=== PATIENT | female | born 1930 | race Caucasian/White ===

== ENCOUNTER 2016-09-21 12:01 | Outpatient (CLI) | payer MEDICARE, OTHER | END 2016-09-21 12:02 | disposition home or self-care (01) | DX: E11.9 Type 2 diabetes mellitus without complications (principal); I10 Essential (primary) hypertension; E78.5 Hyperlipidemia, unspecified ==

== ENCOUNTER 2017-02-20 13:05 | Outpatient (CLI) | payer MEDICARE, OTHER | END 2017-02-20 13:06 | disposition critical access hospital (66) | LOC: EMS 13:05 | PROVIDERS: ATTEND Surgery | DX: R40.20 Unspecified coma (principal) | CPT/HCPCS: A0425; A0427 ==

== ENCOUNTER 2017-02-20 13:25 | Emergency (ER) | payer MEDICARE, OTHER ==
[2017-02-20] MEDS ORDERED: SODIUM CHLORIDE 0.9% 1,000 ML IV ONE (13:54)
[2017-02-20] MEDS ORDERED: DEXTROSE 25% ABBOJECT 2.5 GM/10 ML SYRINGE IVP STA (14:45)
[2017-02-20] MEDS ORDERED: DEXTROSE 5% 1,000 ML IV ONE (15:30)
--- NOTE | 2017-02-20 16:45 | ED Physician Documentation ---
History of Present Illness - Stated complaint Stated Complaint: HYPOGLYCEMIC - Chief complaint Chief Complaint: General - History obtained from History obtained from: Patient, Family - History of Present Illness Timing: Today - Additonal information Additional information: 86 y/o female was feeling well yesterday and today she ended up unconscious on the floor. Her blood sugar was 33 and she was given an amp of D50 and the sugar went up to over 200 and back to under 70 when she arrived here. She has been able to eat now and a second line is begun and she is given D5 at 200ml/hr. She is on insulin and metformin. The patient indicates that yesterday she was feeling well and other than some mild fatigue today was feeling well. She was able to take her morning insulin and metformin and denies any chance of a double dose of insulin and she was found on the floor of her bathroom. Review of Systems Constitutional: reports: Sweats. denies: Fever, Myalgias Eyes: denies: Decreased vision Ears: denies: Ear pain Nose: denies: Congestion Throat: denies: Sore throat Cardiac: denies: Chest pain / pressure, Palpitations Respiratory: denies: Dyspnea, Cough GI: denies: Abdominal Pain, Nausea, Vomiting : denies: Dysuria, Frequency, Hesitancy Skin: denies: Rash Musculoskeletal: denies: Neck pain, Back pain, Extremity pain Neurologic: denies: Generalized weakness, Focal weakness, Numbness PD PAST MEDICAL HISTORY - Past Medical History Cardiovascular: Hypertension Respiratory: None Neuro: CVA, TIA Endocrine/Autoimmune: Type 2 diabetes GI: Diverticulitis 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 : None HEENT: Glaucoma Psych: None Musculoskeletal: Osteoarthritis, Osteoporosis Derm: None - Past Surgical History Past Surgical History: Yes General: Cholecystectomy /GIANT TIRE REPAIRER: Hysterectomy - Present Medications Home Medications: Ambulatory Orders Medication Instructions Recorded Confirmed Alendronate Sodium [Fosamax] 70 mg PO DAILY 07/30/13 02/08/17 Aspirin 325 mg PO DAILY 07/30/13 02/08/17 Ca/D3/Mag Ox/Zinc/Sandwich Counter Attendant/Nestor/Bor 1 each PO DAILY 07/30/13 02/08/17 [Calcium +D & Minerals Chew Tab] Clopidogrel [Plavix] 75 mg PO DAILY 07/30/13 02/08/17 Insulin Aspart (Vial) [NovoLOG] 6 unit SQ ONCEDAILY 07/30/13 02/08/17 Insulin Glargine,Hum.rec.anlog 24 unit SQ QAM 07/30/13 02/08/17 [Lantus] Lisinopril 20 mg PO DAILY 07/30/13 02/08/17 Metformin HCl [Fortamet] 1,000 mg PO BID 07/30/13 02/08/17 Multivitamin [Multi-Day Vitamins] 1 each PO DAILY 07/30/13 02/08/17 Simvastatin 20 mg PO DAILY 07/30/13 02/08/17 Carvedilol 12.5 mg PO BID 08/09/13 02/08/17 - Allergies Allergies/Adverse Reactions: Allergies Allergy/AdvReac Type Severity Reaction Status Date / Time No Known Drug Allergies Allergy Verified 07/24/16 22:55 - Social History Does the pt smoke?: No Smoking Status: Never smoker Does the pt drink ETOH?: No Does the pt have substance abuse?: No - Immunizations Immunizations are current?: Yes - POLST Patient has POLST: No PD ED PE NORMAL - Vitals Vital signs reviewed: Yes (hypertensive ) - General General: No acute distress, Well developed/nourished - HEENT HEENT: Atraumatic, PERRL - Neck Neck: Supple, no meningeal sign - Cardiac Cardiac: RRR - Respiratory Respiratory: No respiratory distress, Clear bilaterally - Abdomen Abdomen: Soft, Non tender - Back Back: No CVA TTP, No spinal TTP - Derm Derm: Normal color, Warm and dry, No rash - Extremities Extremities: No deformity, No edema - Neuro Neuro: Alert and oriented X 3, No motor deficit, No sensory deficit, Normal speech - Psych Psych: Normal mood, Normal affect Results - Vitals Vitals: Vital Signs - 24 hr 02/20/17 02/20/17 02/20/17 13:27 16:59 18:27 Temperature 35 C L 36.5 C Heart Rate 65 68 76 Respiratory 16 14 12 Rate Blood Pressure 156/128 H 130/63 121/62 O2 Saturation 100 96 92 Oxygen O2 Source Room air - Labs Labs: Laboratory Tests 02/20/17 02/20/17 02/20/17 16:43 16:43 16:43 WBC 11.4 H RBC 3.36 L Hgb 10.6 L Hct 32.6 L MCV 97.2 MCH 31.6 H MCHC 32.5 RDW 15.3 H Plt Count 246 MPV 8.5 Neut # 9.6 H Lymph # 1.3 L [place] # 0.4 Eos # 0.0 Baso # 0.0 Absolute Nucleated RBC 0.00 Nucleated RBCs 0.0 Sodium 137 Potassium 4.0 Chloride 101 Carbon Dioxide 26 Anion Gap 10.0 BUN 32 H Creatinine 1.0 Estimated GFR (MDRD) 52 L Glucose 220 H Calcium 9.4 Total Bilirubin 0.5 AST 29 ALT 22 Alkaline Phosphatase 50 Troponin I < 0.04 Total Protein 6.8 Albumin 3.7 Globulin 3.1 Albumin/Globulin Ratio 1.2 Lipase 21 L Urine Color Urine Clarity Urine pH Ur Specific [place] Urine Protein Urine Glucose (UA) Urine Ketones Urine Occult Blood Urine Nitrite Urine Bilirubin Urine Urobilinogen Ur Leukocyte Esterase Urine RBC Urine WBC Ur Squamous Epith Cells Urine Bacteria Ur Microscopic Review Urine Culture Comments 02/20/17 17:55 WBC RBC Hgb Hct MCV MCH MCHC RDW Plt Count MPV Neut # Lymph # [place] # Eos # Baso # Absolute Nucleated RBC Nucleated RBCs Sodium Potassium Chloride Carbon Dioxide Anion Gap BUN Creatinine Estimated GFR (MDRD) Glucose Calcium Total Bilirubin AST ALT Alkaline Phosphatase Troponin I Total Protein Albumin Globulin Albumin/Globulin Ratio Lipase Urine Color YELLOW Urine Clarity CLEAR Urine pH 6.0 Ur Specific [place] 1.020 Urine Protein NEGATIVE Urine Glucose (UA) 100 H Urine Ketones NEGATIVE Urine Occult Blood SMALL H Urine Nitrite NEGATIVE Urine Bilirubin NEGATIVE Urine Urobilinogen 0.2 (NORMAL) Ur Leukocyte Esterase NEGATIVE Urine RBC 6-10 H Urine WBC 0-3 Ur Squamous Epith Cells NONE SEEN Urine Bacteria None Seen Ur Microscopic Review INDICATED Urine Culture Comments NOT INDICATED PD MEDICAL DECISION MAKING - ED course Complexity details: reviewed old records, reviewed results, re-evaluated patient , considered differential, d/w patient ED course: 86-year-old female insulin-dependent diabetic with reactive hypoglycemia has been rescued with intravenous glucose 2 she is now feeling improved she is hydrated and will be stable for disposition. Departure - Departure Disposition: 01 Home, Self Care Clinical Impression: Hypoglycemia due to insulin Instructions: ED Diabetes Hypoglycemia Insulin React Follow-Up: Mir Andrade MD [Primary Care Provider] -
[2017-02-20 16:49] LABS: BASOPHILS % (AUTO) 0.4 %; EOSINOPHILS % (AUTO) 0.2 %; HCT - HEMATOCRIT 32.6 % (37.0-47.0); HGB - HEMOGLOBIN 10.6 g/dL (12.0-16.0); LYMPHOCYTES # (AUTO) 1.3 10^3/uL (1.5-3.5); LYMPHOCYTES % (AUTO) 11.2 %; MEAN CORPUSCULAR HEMOGLOBIN 31.6 pg (27.0-31.0); MEAN CORPUSCULAR HGB CONC 32.5 g/dL (32.0-36.0); MEAN CORPUSCULAR VOLUME 97.2 fL (81.0-99.0); MEAN PLATELET VOLUME 8.5 fL (7.9-10.8); MONOCYTES # (AUTO) 0.4 10^3/uL (0.0-1.0); MONOCYTES % (AUTO) 3.9 %; NEUTROPHILS # (AUTO) 9.6 10^3/uL (1.5-6.6); NEUTROPHILS % (AUTO) 84.3 %; RED BLOOD COUNT 3.36 10^6/uL (4.20-5.40); RED CELL DISTRIBUTION WIDTH 15.3 % (12.0-15.0); UNCORRECTED WHITE BLOOD COUNT 11.4 x10^3/uL; WHITE BLOOD COUNT 11.4 x10^3/uL (4.8-10.8)
[2017-02-20 17:04] LABS: ALBUMIN/GLOBULIN RATIO 1.2 (1.0-2.2); BILIRUBIN,TOTAL 0.5 mg/dL (0.2-1.0); CALCIUM 9.4 mg/dL (8.5-10.3); TOTAL PROTEIN 6.8 g/dL (6.7-8.2)
[2017-02-20 18:06] LABS: BILIRUBIN,URINE NEGATIVE (NEGATIVE)
[2017-02-20 18:08] LABS: UA w/ MICROSCOPIC CHARGE YES
[2017-02-20 18:33] LABS: UR CULTURE IF IND NOT INDICATED; WBC,URINE 0-3 /HPF (0-5)
[2017-02-20 19:12] VITALS: BP 144/64
== END 2017-02-20 19:36 | disposition home or self-care (01) ==
LOC: EDUNIT# → ED 13:25
DX: E11.649 Type 2 diabetes mellitus with hypoglycemia without coma (principal); T38.3X5A Adverse effect of insulin and oral hypoglycemic [antidiabetic] drugs, initial encounter; Z79.4 Long term (current) use of insulin; Z79.84 Long term (current) use of oral hypoglycemic drugs; I10 Essential (primary) hypertension; M19.90 Unspecified osteoarthritis, unspecified site; Z86.73 Personal history of transient ischemic attack (TIA), and cerebral infarction without residual deficits; Z79.82 Long term (current) use of aspirin
CPT/HCPCS: 36415; 51701; 80053; 81001; 81003; 83690; 84484; 85025; 87086; 96360; 96361; 99284

== ENCOUNTER 2017-03-18 10:29 | Outpatient (CLI) | payer MEDICARE, OTHER ==
[2017-03-18 13:29] LABS: ALBUMIN/GLOBULIN RATIO 1.2 (1.0-2.2); BILIRUBIN,TOTAL 0.3 mg/dL (0.2-1.0); CALCIUM 9.3 mg/dL (8.5-10.3); CREATININE 1.1 mg/dL (0.4-1.0); POTASSIUM 4.1 mmol/L (3.5-5.0); TOTAL PROTEIN 7.1 g/dL (6.7-8.2)
[2017-03-18 13:39] LABS: HEMOGLOBIN A1C 0.73 g/dL
== END 2017-03-18 10:30 | disposition home or self-care (01) ==
LOC: LAB.WCP 10:29
PROVIDERS: ATTEND Family Medicine
DX: D50.9 Iron deficiency anemia, unspecified (principal); I10 Essential (primary) hypertension; E11.9 Type 2 diabetes mellitus without complications; I67.89 Other cerebrovascular disease
CPT/HCPCS: 36415; 80053; 83036

== ENCOUNTER 2017-05-18 08:00 | Outpatient (CLI) | payer MEDICARE, OTHER ==
[2017-05-18 19:28] LABS: ALBUMIN/GLOBULIN RATIO 1.1 (1.0-2.2); BILIRUBIN,TOTAL 0.3 mg/dL (0.2-1.0); CALCIUM 9.1 mg/dL (8.5-10.3); POTASSIUM 4.1 mmol/L (3.5-5.0); TOTAL PROTEIN 6.9 g/dL (6.7-8.2)
[2017-05-18 20:44] LABS: HEMOGLOBIN A1C 0.74 g/dL
== END 2017-05-18 08:01 | disposition home or self-care (01) ==
LOC: LAB.WCP 08:00
PROVIDERS: ATTEND Family Medicine
DX: E11.9 Type 2 diabetes mellitus without complications (principal); I10 Essential (primary) hypertension; E78.5 Hyperlipidemia, unspecified
CPT/HCPCS: 36415; 80053; 83036

== ENCOUNTER 2017-11-23 09:47 | Outpatient (CLI) | payer MEDICARE, OTHER ==
[2017-11-23 13:21] LABS: ALBUMIN 3.8 g/dL (3.2-5.5); ALBUMIN/GLOBULIN RATIO 1.2 (1.0-2.2); BILIRUBIN,TOTAL 0.2 mg/dL (0.2-1.0); CREATININE 1.1 mg/dL (0.4-1.0); TOTAL PROTEIN 6.9 g/dL (6.7-8.2)
[2017-11-23 13:53] LABS: HB2 TOTAL 11.4 g/dL; HEMOGLOBIN A1C 0.79 g/dL; HEMOGLOBIN A1C % 8.5 % (4.6-6.2)
== END 2017-11-23 09:48 | disposition home or self-care (01) ==
LOC: LAB.WCP 09:47
PROVIDERS: ATTEND Family Medicine
DX: E11.9 Type 2 diabetes mellitus without complications (principal); I10 Essential (primary) hypertension
CPT/HCPCS: 36415; 80053; 83036

== ENCOUNTER 2018-03-04 10:53 | Emergency (ER) | payer MEDICARE, OTHER ==
[2018-03-04 12:11] LABS: BASOPHILS % (AUTO) 0.4 %; EOSINOPHILS # (AUTO) 0.2 10^3/uL (0.0-0.7); EOSINOPHILS % (AUTO) 1.9 %; HGB - HEMOGLOBIN 10.4 g/dL (12.0-16.0); LYMPHOCYTES # (AUTO) 1.7 10^3/uL (1.5-3.5); LYMPHOCYTES % (AUTO) 16.5 %; MEAN CORPUSCULAR VOLUME 96.9 fL (81.0-99.0); MEAN PLATELET VOLUME 8.9 fL (7.9-10.8); MONOCYTES # (AUTO) 0.9 10^3/uL (0.0-1.0); MONOCYTES % (AUTO) 8.5 %; NEUTROPHILS # (AUTO) 7.5 10^3/uL (1.5-6.6); NEUTROPHILS % (AUTO) 72.7 %; PLT - PLATELET COUNT 298 10^3/uL (130-450); RED BLOOD COUNT 3.26 10^6/uL (4.20-5.40); RED CELL DISTRIBUTION WIDTH 14.1 % (12.0-15.0); WHITE BLOOD COUNT 10.4 x10^3/uL (4.8-10.8)
[2018-03-04] MEDS ORDERED: ACETAMINOPHEN 325 MG TABLET PO STA (12:15)
--- NOTE | 2018-03-04 12:20 | ED Physician Documentation ---
History of Present Illness - Stated complaint Stated Complaint: R SIDE PX/GLF - Chief complaint Chief Complaint: Trauma Abd - History obtained from History obtained from: Patient, Family - History of Present Illness Timing: Other (About 3 days ago this prabhakar 87-year-old woman with history of stroke on Plavix fell in her garage. She does not really remember the specific details, she says she was just cleaning up in the garage and she fell and she did not know why. She remembers going down and kind of crumpled to the floor. The only site of pain is the right posterior ribs. She may or may not of hit her head but has no persistent headache. The last fall prior to that was 6 weeks ago and prior to that was about a year ago. She lives in a home alone with only a few stairs down to the garage. She does not use a cane or a walker. She has slightly slurred speech but the friend at the bedside said that is chronic since her stroke a few years ago. 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 : None HEENT: Glaucoma Psych: None Musculoskeletal: Osteoarthritis, Osteoporosis Derm: None - Past Surgical History Past Surgical History: Yes General: Cholecystectomy /NURSING STUDENT: Hysterectomy - Present Medications Home Medications: Ambulatory Orders Medication Instructions Recorded Confirmed Alendronate Sodium [Fosamax] 70 mg PO DAILY 07/30/13 12/13/17 Aspirin 325 mg PO DAILY 07/30/13 12/13/17 Ca/D3/Mag Ox/Zinc/Regional Engineer/Nestor/Bor 1 each PO DAILY 07/30/13 12/13/17 [Calcium +D & Minerals Chew Tab] Clopidogrel [Plavix] 75 mg PO DAILY 07/30/13 12/13/17 Insulin Aspart (Vial) [NovoLOG] 6 unit SQ ONCEDAILY 07/30/13 12/13/17 Insulin Glargine,Hum.rec.anlog 24 unit SQ QAM 07/30/13 12/13/17 [Lantus] Metformin HCl [Fortamet] 1,000 mg PO BID 07/30/13 12/13/17 Multivitamin [Multi-Day Vitamins] 1 each PO DAILY 07/30/13 12/13/17 Simvastatin 20 mg PO DAILY 07/30/13 12/13/17 Carvedilol 12.5 mg PO BID 08/09/13 12/13/17 Nitrofurantoin Monohyd/M-Cryst 1 tab PO BID 5 Days capsule 03/04/18 [Macrobid 100 mg Capsule] - Allergies Allergies/Adverse Reactions: Allergies Allergy/AdvReac Type Severity Reaction Status Date / Time No Known Drug Allergies Allergy Verified 03/04/18 11:04 - Social History Does the pt smoke?: No Smoking Status: Never smoker Does the pt drink ETOH?: No Does the pt have substance abuse?: No - Family History Family history: reports: Non contributory - Immunizations Immunizations are current?: Yes - POLST Patient has POLST: No PD ED PE NORMAL - Vitals Vital signs reviewed: Yes - General General: Alert and oriented X 3, No acute distress - HEENT HEENT: PERRL, EOMI, Pharynx benign - Neck Neck: Supple, no meningeal sign, No bony TTP - Cardiac Cardiac: RRR, No murmur - Respiratory Respiratory: No respiratory distress, Clear bilaterally, Other (She is tender over the right posterior ribs, about rib 9 maximally, there is no overlying ecchymosis or deformity.) - Abdomen Abdomen: Normal bowel sounds, Soft, Non tender - Back Back: No CVA TTP, No spinal TTP - Derm Derm: Normal color, Warm and dry - Extremities Extremities: Other (There is a shallow bruise and abrasion over the right tibial area, but there is no deformity or tenderness.) - Neuro Neuro: Alert and oriented X 3, solar sales energy advisor 2-12 intact Eye Opening: Spontaneous Motor: Obeys Commands Verbal: Oriented GCS Score: 15 - Psych Psych: Normal mood, Normal affect Results - Vitals Vitals: Vital Signs - 24 hr 03/04/18 03/04/18 11:00 11:37 Temperature 36.8 C Heart Rate 74 72 Respiratory 16 12 Rate Blood Pressure 129/64 146/59 H O2 Saturation 98 98 Oxygen O2 Source Room air - EKG (time done) 1208 Rate: Rate (enter#) (70) Rhythm: NSR [place]: Normal Intervals: RBBB QRS: Normal Ischemia: Normal ST segments Computer interpretation: Agree with computer - Labs Labs: Laboratory Tests 03/04/18 03/04/18 03/04/18 11:58 11:58 12:45 WBC 10.4 RBC 3.26 L Hgb 10.4 L Hct 31.6 L MCV 96.9 MCH 32.0 H MCHC 33.0 RDW 14.1 Plt Count 298 MPV 8.9 Neut # (Auto) 7.5 H Lymph # (Auto) 1.7 [place] # (Auto) 0.9 Eos # (Auto) 0.2 Baso # (Auto) 0.0 Absolute Nucleated RBC 0.00 Nucleated RBC % 0.0 Sodium 137 Potassium 4.6 Chloride 101 Carbon Dioxide 29 Anion Gap 7.0 BUN 29 H Creatinine 1.0 Estimated GFR (MDRD) 52 L Glucose 253 H POC Whole Bld Glucose 218 H Calcium 9.9 Total Bilirubin 0.7 AST 21 ALT 14 Alkaline Phosphatase 55 Total Protein 7.3 Albumin 3.8 Globulin 3.5 Albumin/Globulin Ratio 1.1 Lipase 24 Urine Color Urine Clarity Urine pH Ur Specific [place] Urine Protein Urine Glucose (UA) Urine Ketones Urine Occult Blood Urine Nitrite Urine Bilirubin Urine Urobilinogen Ur Leukocyte Esterase Urine RBC Urine WBC Urine WBC [place] Ur Epithelial Cells Ur Squamous Epith Cells Urine Bacteria Ur Microscopic Review Urine Culture Comments 03/04/18 13:23 WBC RBC Hgb Hct MCV MCH MCHC RDW Plt Count MPV Neut # (Auto) Lymph # (Auto) [place] # (Auto) Eos # (Auto) Baso # (Auto) Absolute Nucleated RBC Nucleated RBC % Sodium Potassium Chloride Carbon Dioxide Anion Gap BUN Creatinine Estimated GFR (MDRD) Glucose POC Whole Bld Glucose Calcium Total Bilirubin AST ALT Alkaline Phosphatase Total Protein Albumin Globulin Albumin/Globulin Ratio Lipase Urine Color YELLOW Urine Clarity HAZY Urine pH 6.0 Ur Specific [place] 1.020 Urine Protein NEGATIVE Urine Glucose (UA) NEGATIVE Urine Ketones NEGATIVE Urine Occult Blood NEGATIVE Urine Nitrite POSITIVE H Urine Bilirubin NEGATIVE Urine Urobilinogen 0.2 (NORMAL) Ur Leukocyte Esterase SMALL H Urine RBC 0-5 Urine WBC 11-25 H Urine WBC [place] PRESENT Ur Epithelial Cells RARE Transitional Ur Squamous Epith Cells RARE Squamous Urine Bacteria Many H Ur Microscopic Review INDICATED Urine Culture Comments INDICATED - Rads (name of study) CT Head Radiology: EMP read contemporaneously (NAD) R ribs and chest XR Radiology: EMP read contemporaneously (Minimally displaced ninth rib fracture without pneumothorax.) PD MEDICAL DECISION MAKING - ED course ED course: 87-year-old woman with a fall a few days ago and clinically rib fracture which is shown on x-ray. She declined anything stronger for pain than Tylenol. Otherwise her workup only demonstrated evidence of urinary tract infection which is treated with Macrobid. - Sepsis Event Vital Signs: Vital Signs - 24 hr 03/04/18 03/04/18 11:00 11:37 Temperature 36.8 C Heart Rate 74 72 Respiratory 16 12 Rate Blood Pressure 129/64 146/59 H O2 Saturation 98 98 Oxygen O2 Source Room air Departure - Departure Disposition: 01 Home, Self Care Clinical Impression: Urinary tract infection Qualifiers: Urinary tract infection type: acute cystitis Hematuria presence: without hematuria Qualified Code(s): N30.00 - Acute cystitis without hematuria Rib fracture Qualifiers: Encounter type: initial encounter Rib fracture type: single rib Fracture type: closed Laterality: right Qualified Code(s): S22.31XA - Fracture of one rib, right side, initial encounter for closed fracture Head injury Qualifiers: Encounter type: initial encounter Qualified Code(s): S09.90XA - Unspecified injury of head, initial encounter Condition: Good Record reviewed to determine appropriate education?: Yes Instructions: ED Fx Rib, ED UTI Cystitis Female Prescriptions: Nitrofurantoin Monohyd/M-Cryst [Macrobid 100 mg Capsule] 1 tab PO BID 5 Days capsule Comments: We will culture your urine, the results should be done in 48-72 hours. If an antibiotic change is necessary we will call you. Return if worse in the meantime, especially if you develop increasing flank pain, fevers, or cannot keep down the medication. Your blood pressure was elevated today on check into the emergency department. This does not mean that you have hypertension, it is a common phenomenon to come to the emergency department and have elevated blood pressure. I recommend that you see your primary care physician within the week to have it rechecked when you are feeling better.
[2018-03-04 12:37] LABS: ALBUMIN 3.8 g/dL (3.2-5.5); ALBUMIN/GLOBULIN RATIO 1.1 (1.0-2.2); BILIRUBIN,TOTAL 0.7 mg/dL (0.2-1.0); CALCIUM 9.9 mg/dL (8.5-10.3); TOTAL PROTEIN 7.3 g/dL (6.7-8.2)
[2018-03-04 13:31] LABS: BILIRUBIN,URINE NEGATIVE (NEGATIVE); GLUCOSE, URINE (UA) NEGATIVE (NEGATIVE); KETONES,URINE (UA) NEGATIVE (NEGATIVE); LEUKOCYTE ESTERASE, URINE SMALL (NEGATIVE); NITRITE,URINE POSITIVE (NEGATIVE); OCCULT BLOOD,URINE NEGATIVE (NEGATIVE); PROTEIN,URINE NEGATIVE (NEGATIVE); UROBILINOGEN,URINE 0.2 (NORMAL) E.U./dL (NORMAL)
--- NOTE | 2018-03-04 13:41 | CT Report ---
Procedure Date: 03/04/2018 Accession Number: [id number] / [id number] Procedure: CT - Head W/O CPT Code: FULL RESULT: EXAM: CT HEAD EXAM DATE: 03/04/2018 01:07 PM. CLINICAL HISTORY: Fall, possible head injury. confusion. COMPARISON: Head without contrast 08/09/2013. TECHNIQUE: Multiaxial CT images were obtained from the foramen magnum to the vertex. Reformats: Coronal. IV contrast: None. In accordance with CT protocol optimization, one or more of the following dose reduction techniques were utilized for this exam: automated exposure control, adjustment of mA and/or KV based on patient size, or use of iterative reconstructive technique. FINDINGS: Parenchyma: Multiple old stable left-sided infarcts within the cerebellar and cerebral hemispheres, also involving the left basal ganglia. No intraparenchymal hemorrhage. No evidence of mass, midline shift, or CT findings of acute infarction. George-white differentiation is distinct. 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 Extraaxial Spaces: Normal for age. No subdural or epidural collections identified. Ventricles: The ventricles and cortical sulci are enlarged, consistent with age-related tissue loss. Sinuses and orbits: Imaged paranasal sinuses, orbits, and mastoids show no significant abnormality. Bones: No evidence of fracture or calvarial defect. Other: None. IMPRESSION: No acute intracranial abnormality nor bleed. RADIA
[2018-03-04 13:44] LABS: CLARITY,URINE HAZY (CLEAR)
--- NOTE | 2018-03-04 13:44 | XRAY Report ---
Procedure Date: 03/04/2018 Accession Number: [id number] / [id number] Procedure: XR - Ribs w/PA Chest RT CPT Code: FULL RESULT: EXAM: RIGHT RIB RADIOGRAPHY EXAM DATE: 03/04/2018 01:18 PM. CLINICAL HISTORY: Fall 3 days ago. Right posterior rib pain. COMPARISON: CHEST 2 VIEW PA/LAT 10/20/2016 9:48 AM. TECHNIQUE: 1 view of the chest and 2 views of the ribs. FINDINGS: Bones: Acute minimally displaced fracture lateral aspect right ninth rib. Old fractures of the right fifth and left ninth ribs. Lungs: No focal opacities. No pneumothorax. No pleural effusions. Mediastinum: Heart and mediastinal contours are unremarkable. Other: None. IMPRESSION: Acute minimally displaced fracture right ninth rib. No pneumothorax. RADIA
[2018-03-04 13:45] LABS: RBC,URINE 0-5 /HPF (0-5); SQUAMOUS EPITHELIAL CELL,UR RARE Squamous (<= Few); WBC CLUMPS,URINE PRESENT
[2018-03-04 13:46] LABS: BACTERIA,URINE Many /HPF (None Seen)
[2018-03-04] MEDS ORDERED: NITROFURANTOIN MACRO 100 MG CAPSULE PO STA (13:50)
[2018-03-04 14:03] VITALS: BP 140/51
== END 2018-03-04 14:12 | disposition home or self-care (01) ==
LOC: ED 10:53
DX: S22.31XA Fracture of one rib, right side, initial encounter for closed fracture (principal); S09.90XA Unspecified injury of head, initial encounter; W18.39XA Other fall on same level, initial encounter; Y92.015 Private garage of single-family (private) house as the place of occurrence of the external cause; N30.00 Acute cystitis without hematuria; Z86.73 Personal history of transient ischemic attack (TIA), and cerebral infarction without residual deficits; I10 Essential (primary) hypertension; E11.9 Type 2 diabetes mellitus without complications; M19.90 Unspecified osteoarthritis, unspecified site; M81.0 Age-related osteoporosis without current pathological fracture; Z79.82 Long term (current) use of aspirin; Z79.4 Long term (current) use of insulin
CPT/HCPCS: 70450; 71101; 80053; 81001; 83690; 85025; 87086; 87181; 93005; 99284; A9270; 36415; 81003